=== PATIENT | male | born 1965 | race Caucasian/White ===

== ENCOUNTER → 2017-08-26 | Outpatient (CLI) | payer OTHER ==
[~2017-08-26] MED LIST: OXYMETAZOLINE 0.05% NASAL SPRAY 30ML BOTTLE. NS
== END | disposition home or self-care (01) ==
LOC: RT 18:33
DX: G47.33 Obstructive sleep apnea (adult) (pediatric) (principal); R06.83 Snoring
CPT/HCPCS: 95810

== ENCOUNTER 2018-02-09 10:58 | Emergency (ER) | payer OTHER ==
[2018-02-09] MEDS: diazePAM 5 MG TABLET PO (11:46)
[2018-02-09] MEDS: oxyCODONE/APAP 5/325 1 TAB TABLET PO (11:47)
== END 2018-02-09 12:47 | disposition home or self-care (01) ==
LOC: ER 10:58
DX: M54.16 Radiculopathy, lumbar region (principal); F12.10 Cannabis abuse, uncomplicated; F17.210 Nicotine dependence, cigarettes, uncomplicated
CPT/HCPCS: 72100; 99284

== ENCOUNTER → 2018-02-18 | Outpatient (CLI) | payer OTHER | END | disposition home or self-care (01) | LOC: KCIC MRI 11:31 | DX: M51.36 Other intervertebral disc degeneration, lumbar region (principal); M51.26 Other intervertebral disc displacement, lumbar region; M48.07 Spinal stenosis, lumbosacral region; F17.210 Nicotine dependence, cigarettes, uncomplicated | CPT/HCPCS: 72148 ==